=== PATIENT | male | born 1985 | race Caucasian/White ===

== ENCOUNTER 2021-11-22 14:11 | Emergency (ER) | payer MEDICAID, SELFPAY ==
[2021-11-22 14:11] VITALS: BP 109/78; PULSE 83; RESP 16; TEMP 36.8; O2SAT 100; BMI 22.3
--- NOTE | 2021-11-22 15:16 | CT_ITS ---
STUDY: CT ABDOMEN AND PELVIS WITH CONTRAST REASON FOR EXAM: Male, 36 years old. pain -- IV PO Contrast RADIATION DOSAGE (If Supplied By Facility): CTDIvol = ( 13.16 ) mGy, DLP = ( 567.91 ) mGycm TECHNIQUE: Transaxial images were obtained from the dome of the diaphragm to the symphysis pubis with oral contrast. Oral and amp; IV Gastrografin and amp; 100mL Isovue-370 was administered. Sagittal and coronal images were reconstructed. Individualized dose optimization techniques were used for this CT. COMPARISON: None. FINDINGS: The visualized lung bases are unremarkable. The visualized portions of the heart are within normal limits. Normal liver. The gallbladder is contracted. There is moderate splenomegaly. Normal pancreas. Normal bilateral adrenal glands. Normal right kidney. Normal left kidney. Normal visualized stomach. Normal small intestine. Normal colon. There is non-visualization of the appendix. Normal abdominal aorta. Normal inferior vena cava. Normal retroperitoneum. Normal urinary bladder. Normal abdominal wall. Normal osseous structures. CT/Abdomen/Pelvis WITH Contrast IMPRESSION: Moderate splenomegaly. Electronically Signed: Will Florentino MD at 17:10 EDT ,
--- NOTE | 2021-11-22 15:18 | EX.ED.DYSGE1 ---
HPI History of Present Illness Chief Complaint: Abd Pain Detail of Chief Complaint: Crohn's disease Informant: patient Narrative Narrative: Patient presents secondary to concerns of Crohn's disease. He was diagnosed in 2007 on colonoscopy. He has had intermittent flares throughout the years but has never been on maintenance medication. [place] the last [place] years and is recently [place] the [place] He is trying to establish medical coverage here. He has an appointment to see a new primary care physician the end of the month. He presents today secondary to continued abdominal pain and bloating after eating along with increased gas and diarrhea. No fever or chills. He is only had 1 instance where he has noted blood in his stool. [facility] Medical History Crohn's disease GERD (gastroesophageal reflux disease) Home Medications dicyclomine 10 mg capsule 10 mg PO BID #60 caps 11/22/21 [Rx Last Taken Unknown] pantoprazole 40 mg tablet,delayed release (Protonix) 40 mg PO DAILY #30 tabs 11/22/21 [Rx Last Taken Unknown] prednisone 20 mg tablet 40 mg PO DAILY #60 tabs 11/22/21 [Rx Last Taken Unknown] Allergy/AdvReac Type Severity Reaction Status Date / Time No Known Allergies Allergy Verified 11/22/21 14:14 Family History Father Heart disease Grandfather Heart disease Surgical History No history of previous surgery Social History Smoking Status: Never smoker alcohol intake: current alcohol intake frequency: a few times a month substance use type: marijuana ROS ROS ED Constitutional Constitutional ED: Denies chills or fever(s) Eyes Eyes: Denies change in vision or discharge from eye(s) ENT ENT ED: Denies discharge from eye(s), rhinorrhea or sore throat Cardiovascular Cardiovascular: Denies chest pain or palpitations Respiratory/Chest Respiratory/Chest: Denies cough or dyspnea Gastrointestinal Gastrointestinal: Reports abdominal pain, diarrhea and nausea; Denies vomiting Genitourinary Genitourinary ED: Denies difficulty urinating or dysuria Musculoskeletal Musculoskeletal: Denies back pain or extremity pain Integumentary Denies Abrasions or rash Neurologic Neurologic: Denies headache(s) or weakness Psychiatric Psychiatric: Denies anxiety or depression Allergic/Immunologic Allergic/Immunologic ED: Denies lip swelling or urticaria EXAM Physical Exam Const Vital Signs: 11/22/21 14:11 Temperature 98.2 F Temperature Source Temporal Pulse Rate 83 Respiratory Rate 16 Blood Pressure 109/78 Blood Pressure Mean 88 Pulse Ox 100 Oxygen Delivery Method Room Air Positive well nourished and well developed General Appearance ED: well developed HEENT Reports normocephalic and head/scalp atraumatic Eyes PERRL and EOMs intact bilaterally Neck supple Chest Wall inspection of chest normal and palpation of chest normal Resp normal respiratory effort and clear to auscultation bilaterally Cardio regular rate and regular rhythm GI normal to inspection, nondistended, normoactive bowel sounds Palpation: soft and tender RUQ Back/Spine no CVA tenderness Extremity normal to inspection Neuro oriented x3 and no sensory deficits noted Sensorium / Orientation: alert Motor Exam: strength 5/5 throughout Psych mental status grossly normal Skin no rashes or lesions noted MDM MDM MDM Narrative Medical decision making narrative: Lab work obtained along with CT scan of the abdomen pelvis with contrast. Lab Data Labs: Laboratory Results - last 24 hr 11/22/21 11/22/21 15:15 15:20 WBC 4.8 RBC 4.66 Hgb 11.5 L Hct 37.1 L MCV 79.6 L MCH 24.7 L MCHC 31.0 L RDW Std Deviation 41.9 RDW Coeff of Jenifer 14.6 Plt Count 90 L MPV 10.4 Immature Gran % (Auto) 0.200 Neut % (Auto) 62.2 Lymph % (Auto) 20.2 Nuckolls % (Auto) 6.9 Eos % (Auto) 9.9 H Baso % (Auto) 0.6 Absolute Neuts (auto) 3.0 Absolute Lymphs (auto) 0.96 Nucleated RBC % 0 Platelet Estimate MOD DEC RBC Morphology N CHROM Anisocytosis 1+ Microcytosis 1+ Sodium 139 Potassium 3.9 Chloride 106 Carbon Dioxide 29.0 Anion Gap 4 L BUN 9 Creatinine 0.69 L Estim Creat Clear Calc 150.47 Est GFR (MDRD) Af Amer 165 Est GFR (MDRD) Non-Af 137 BUN/Creatinine Ratio 13.1 Glucose 87 Calcium 8.4 L Total Bilirubin 0.30 Direct Bilirubin 0.08 AST 19 ALT 39 Alkaline Phosphatase 118 H Total Protein 6.8 Albumin 3.0 L Globulin 3.8 Radiography Diagnostic Testing: Clinical Impression(s) from Imaging Studies Abdomen/Pelvis CT 11/22/21 15:16 IMPRESSION: Moderate splenomegaly. Electronically Signed: Will Florentino MD at 17:10 EDT , Treatment and Re-Evaluation Narrative: CBC and chemistry studies unremarkable. LFTs significant only for an alk phos of 118. CT scan reveals moderate splenomegaly but no other acute findings noted. I spoke with GI, Dr. Uribe. Because the patient is symptomatic he will be started on prednisone, Protonix, dicyclomine. Dr. Uribe said he should be able to see him in the office in the next couple weeks I will write him [address] Uribe will continue as needed. Test results and plan discussed with patient and he is in agreement. Discharge Plan Triage Chief Complaint: Abd Pain ED Provider: Adelia Nicholas Dx/Rx/DC Orders Clinical Impression: Abdominal pain, History of Crohn's disease Instructions: Crohns Disease Dc Prescriptions: New prednisone 20 mg tablet 40 mg PO DAILY Qty: 60 0RF pantoprazole [Protonix] 40 mg tablet,delayed release (DR/EC) 40 mg PO DAILY Qty: 30 0RF dicyclomine 10 mg capsule 10 mg PO BID Qty: 60 0RF Primary Care Provider: Rhonda Callahan Referrals: Rhonda Callahan MD [Primary Care Provider] - Keep [facility] appointment Micah Uribe DO [Med Staff - Active Staff] - As soon as possible [facility],Juanita Pantoja [Non-Staff] - Disposition Disposition: Home, Self Care
[2021-11-22] MEDS: 0.9% Normal Saline 1,000 ML 150 ML IV (15:29)
[2021-11-22 15:42] LABS: Absolute Lymphocyte Count 0.96 X10^3/uL (0.83-4.51); Basophil# 0.03 X10^3/uL; Basophil% 0.6 % (0-1); Eosinophil# 0.47 X10^3/uL; Eosinophils% 9.9 % (0-5); Hematocrit 37.1 % (40-54); Hemoglobin 11.5 g/dL (13.0-16.5); Lymphocyte # 0.96 X10^3/ul (0.83-4.51); Lymphocyte % 20.2 % (19-41); Mean Corpuscular Hgb 24.7 pg (27.0-32.0); Mean Corpuscular Volume 79.6 fL (80-94); Mean Platelet Vol. 10.4 fl (6.2-12.0); Monocyte# 0.33 X10^3/uL; Monocyte% 6.9 % (0-10); NRBC Flagged by Analyzer 0 % (0-5); Neutrophil # 2.95 X10^3/uL (2.7-7.7); Neutrophil % 62.2 % (47-70); POSITIVE COUNT YES; Platelet Count 90 K/mm3 (150-450); RBC Distribution Width CV 14.6 % (11.6-14.6); RBC Distribution Width SD 41.9 fl (35.1-43.9); Red Blood Count 4.66 M/mm3 (4.6-6.2); White Blood Count 4.8 K/mm3 (4.4-11.0)
[2021-11-22 15:52] LABS: Differential Indicated SCAN CRITERIA MET
[2021-11-22 16:16] LABS: Platelet Estimate MOD DEC (ADEQ)
[2021-11-22 16:17] LABS: Anisocytosis 1+; Microcytosis 1+; Red Cell Morphology N CHROM NORMAL (NORM C&C)
[2021-11-22 16:20] LABS: BUN 9 mg/dL (7-18); Creatinine, Serum 0.69 mg/dL (0.70-1.30); EST Glomerular Filtration Rate 137 mL/min (>60); Estimated Creatinine Clearance 150.47 ml/min; Glucose 87 mg/dL (74-106)
[2021-11-22 16:21] LABS: AST(SGOT) 19 U/L (15-37); Alanine Aminotransfer ALT/SGPT 39 U/L (16-61); Alkaline Phosphatase 118 U/L (45-117); Anion Gap 4 (5-15); BUN/Creat Ratio 13.1 RATIO (10-20); Bilirubin, Direct 0.08 mg/dL (0.00-0.30); Calcium,Total 8.4 mg/dL (8.5-10.1); Chloride 106 mmol/L (98-107); Est Glom Filt Rate - Afr Amer 165 mL/min (>60); Globulin 3.8 g/dL (2.2-4.2); Potassium 3.9 mmol/L (3.5-5.1); Protein, Total 6.8 g/dL (6.4-8.2); Sodium Level 139 mmol/L (136-145)
[2021-11-22 17:45] VITALS: RESP 16
== END 2021-11-22 17:55 | disposition home or self-care (01) ==
PROVIDERS: Emergency Provider Emergency Medicine; PCP Internal Medicine; Visit Provider Emergency Medicine
DX: R10.9 Unspecified abdominal pain (principal); K50.90 Crohn's disease, unspecified, without complications; K21.9 Gastro-esophageal reflux disease without esophagitis
CPT/HCPCS: 74177; 80048; 80076; 85025; 96360; 96361; 99283; J7030; Q9967; A4216

== ENCOUNTER → 2021-12-31 | Outpatient (CLI) | payer MEDICAID, SELFPAY ==
[2021-12-31 10:40] LABS: Erythrocyte Sedimentation Rate 16 mm/hr (0-20)
[2021-12-31 10:47] LABS: Absolute Lymphocyte Count 1.46 X10^3/uL (0.83-4.51); Absolute Neutrophil Count 5.4 X10^3/uL (2.0-7.7); Basophil# 0.03 X10^3/uL; Basophil% 0.4 % (0-1); Eosinophil# 0.29 X10^3/uL; Eosinophils% 3.7 % (0-5); Hematocrit 38.7 % (40-54); Hemoglobin 12.5 g/dL (13.0-16.5); Lymphocyte # 1.46 X10^3/ul (0.83-4.51); Lymphocyte % 18.8 % (19-41); Mean Corp Hgb Conc 32.3 g/dL (32-36); Mean Corpuscular Hgb 25.8 pg (27.0-32.0); Mean Corpuscular Volume 79.8 fL (80-94); Mean Platelet Vol. 10.6 fl (6.2-12.0); Monocyte# 0.54 X10^3/uL; Monocyte% 6.9 % (0-10); NRBC Flagged by Analyzer 0 % (0-5); Neutrophil # 5.43 X10^3/uL (2.7-7.7); Neutrophil % 69.9 % (47-70); POSITIVE COUNT YES; Platelet Count 91 K/mm3 (150-450); RBC Distribution Width CV 16.2 % (11.6-14.6); Red Blood Count 4.85 M/mm3 (4.6-6.2); White Blood Count 7.8 K/mm3 (4.4-11.0)
[2021-12-31 11:10] LABS: ALB/GLOB Ratio 0.9 RATIO (0.9-2.4); AST(SGOT) 17 U/L (15-37); Alanine Aminotransfer ALT/SGPT 50 U/L (16-61); Albumin, Serum 3.3 g/dL (3.2-5.0); Alkaline Phosphatase 98 U/L (45-117); Anion Gap 8 (5-15); BUN 13 mg/dL (7-18); BUN/Creat Ratio 16.8 RATIO (10-20); Calcium,Total 8.4 mg/dL (8.5-10.1); Chloride 107 mmol/L (98-107); Creatinine, Serum 0.78 mg/dL (0.70-1.30); EST Glomerular Filtration Rate 119 mL/min (>60); Est Glom Filt Rate - Afr Amer 144 mL/min (>60); Ferritin 24 ng/mL (26-388); Globulin 3.7 g/dL (2.2-4.2); Glucose 97 mg/dL (74-106); Iron 87 ug/dL (65-175); Iron Binding Capacity,Total 288 ug/dL (250-450); LDH 91 U/L (87-241); PERCENT IRON SATURATION 30.2 % (15.0-55.0); Potassium 3.3 mmol/L (3.5-5.1); Sodium Level 141 mmol/L (136-145); Thyroid Stim Hormone (TSH) 1.55 uIU/mL (0.358-3.74)
[2022-01-03 16:08] LABS: Endomysial Antibody IgA Negative (Negative)
[2022-01-03 18:08] LABS: Anti-Centromere B Ab 0.4 AI (0.0-0.9); Anti-Chromatin <0.2 AI (0.0-0.9); Anti-Jo <0.2 AI (0.0-0.9); Anti-Scleroderma-70 AB <0.2 AI (0.0-0.9); RNP Ab 0.2 AI (0.0-0.9); SJOGREN'S Anti-SS-A test < 0.2 AI (0.0-0.9); SJOGREN'S Anti-SS-B test < 0.2 AI (0.0-0.9); Smith Ab <0.2 AI (0.0-0.9)
[2022-01-04 13:56] LABS: Immunoglobulin A 190 mg/dL (90-386); t-Transglutaminase IgA <2 U/mL (0-3)
[2022-01-04 13:58] LABS: Anti-dsDNA Ab <1 IU/mL (0-9)
[2022-01-06 16:18] LABS: H. PYLORI STOOL AG Negative (Negative)
[2022-01-07 08:59] LABS: Calprotectin, Stool 261 ug/g (0-120)
[2022-01-11 17:07] LABS: Albumin 3.5 g/dL (2.9-4.4); Alpha-1-Globulins 0.3 g/dL (0.0-0.4); Alpha-2-Globulins 0.7 g/dL (0.4-1.0); Cytoplasmic Ab (C-ANCA) <1:20 titer (Neg:<1:20); Gamma Globulin 1.2 g/dL (0.4-1.8); HEPATITIS B SURFACE AG Negative (Negative); Hep C Antibodies <0.1 s/co ratio (0.0-0.9); Hepatitis A IgM Antibody Negative (Negative); Hepatitis B Core AB IgM Negative (Negative); Immunoglobulin A 203 mg/dL (90-386); Immunoglobulin G 1063 mg/dL (603-1613); Immunoglobulin M 140 mg/dL (20-172); PROEL- TOTAL PROTEIN 6.6 g/dL (6.0-8.5); QNTFERON TB Mitogen Value > 10.00 IU/mL (.); QNTFERON TB Nil Value 0.06 IU/mL (.); QNTFERON TB1+ Ag Value 0.04 IU/mL (.); QNTFERON TB2+ Ag Value 0.04 IU/mL (.)
[2022-01-12 16:44] LABS: EBV Acute VCA IgM < 36.0 U/mL (0.0-35.9); EBV Nuclear Antigen IgG > 600.0 U/mL (0.0-17.9); EBV-VCA IgG > 600.0 U/mL (0.0-17.9)
[2022-01-12 16:46] LABS: CMV Acute Antibody IgM < 30.0 AU/mL (0.0-29.9); Immunoglobulin E 45 IU/mL (6-495); Perinuclear Ab (P-ANCA) <1:20 titer (Neg:<1:20); QNTIFERON TB Positive Criteria Negative (Negative)
== END | disposition home or self-care (01) ==
LOC: LAB 09:17
PROVIDERS: PCP Internal Medicine; Referring Provider Internal Medicine Gastroenterology; Visit Provider Internal Medicine Gastroenterology
DX: K50.90 Crohn's disease, unspecified, without complications (principal); K58.9 Irritable bowel syndrome, unspecified
CPT/HCPCS: 36415; 80053; 80074; 82728; 82784; 82785; 83516; 83540; 83550; 83615; 83630; 83993; 84165; 84443; 85025; 85652; 86140; 86225; 86235; 86255; 86256; 86334; 86480; 86644; 86645; 86664; 86665; 87040; 87338; 87493; 87506

== ENCOUNTER → 2022-01-17 | Outpatient (CLI) | payer MEDICAID, SELFPAY ==
--- NOTE | 2022-01-17 10:58 | US_ITS ---
STUDY: ABDOMINAL ULTRASOUND REASON FOR EXAM: Male, 37 years old. Splenomegaly TECHNIQUE: Transabdominal ultrasound was performed with real-time and static guardado scale imaging. TECHNICAL QUALITY: Adequate. COMPARISON: None. FINDINGS: Liver: The liver measures 17.1 cm. There is normal echogenicity of the liver. The bile ducts are within normal limits. There is hepatic color flow. The direction of portal flow is hepatopetal. There is no demonstrated mass lesion. Portal vein measurement: 1.8 cm Gallbladder: Normal distended gallbladder. The gallbladder wall measures 1 mm. There is a negative sonographic Weiss''s sign. There is no pericholecystic fluid. There are no gallstones. Common Bile Duct (C.B.D.): The common bile duct measures 5 mm. Pancreas: Normal size of the head, body of the pancreas. The tail portion is obscured due to overlying bowel gas. There is normal echogenicity of the pancreas. There is no demonstrated pancreatic mass or cyst. Spleen: There is splenomegaly. The spleen measures 19.1 cm x 5.6 cm x 5.7 cm. Right Kidney: Normal size of the right kidney. The right kidney measures 10.2 cm x 4.9 cm x 6 cm. Normal renal cortex. The right cortex measures 1.3 cm. There is no demonstrated renal mass or cyst. There is no right hydronephrosis. Left Kidney: Normal size of the left kidney. The left kidney measures 11.9 cm x 5 cm x 4.6 cm. Normal renal cortex. The left cortex measures 1.3 cm. There is no demonstrated renal mass or cyst. There is no left hydronephrosis. Aorta: Unremarkable. I.V.C.: The IVC is patent. There is no ascites. US/Abdomen Complete IMPRESSION: Splenomegaly. Electronically Signed: Viraj Tavares MD at 13:09 EDT ,
== END | disposition home or self-care (01) ==
LOC: US 10:57
PROVIDERS: PCP Internal Medicine; Referring Provider Internal Medicine Gastroenterology; Visit Provider Internal Medicine Gastroenterology
DX: R16.1 Splenomegaly, not elsewhere classified (principal)
CPT/HCPCS: 76700

== ENCOUNTER 2022-12-02 17:11 | Emergency (ER) | payer MEDICAID, SELFPAY ==
[2022-12-02 17:12] VITALS: BP 122/82; PULSE 85; RESP 16; TEMP 36.7; O2SAT 100; BMI 23.1
[2022-12-02 17:34] LABS: Absolute Lymphocyte Count 1.25 X10^3/uL (0.83-4.51); Absolute Neutrophil Count 8.4 X10^3/uL (2.0-7.7); Basophil# 0.04 X10^3/uL; Basophil% 0.4 % (0-1); Eosinophil# 0.19 X10^3/uL; Eosinophils% 1.8 % (0-5); Hematocrit 42.2 % (40-54); Hemoglobin 13.3 g/dL (13.0-16.5); Lymphocyte # 1.25 X10^3/ul (0.83-4.51); Lymphocyte % 11.6 % (19-41); Mean Corp Hgb Conc 31.5 g/dL (32-36); Mean Corpuscular Volume 82.6 fL (80-94); Mean Platelet Vol. 9.3 fl (6.2-12.0); Monocyte# 0.86 X10^3/uL; NRBC Flagged by Analyzer 0 % (0-5); Neutrophil # 8.42 X10^3/uL (2.7-7.7); Neutrophil % 77.8 % (47-70); Platelet Count 141 K/mm3 (150-450); RBC Distribution Width CV 13.2 % (11.6-14.6); RBC Distribution Width SD 39.8 fl (35.1-43.9); Red Blood Count 5.11 M/mm3 (4.6-6.2); White Blood Count 10.8 K/mm3 (4.4-11.0)
[2022-12-02 17:50] LABS: ALB/GLOB Ratio 0.7 RATIO (0.9-2.4); AST(SGOT) 9 U/L (15-37); Alanine Aminotransfer ALT/SGPT 38 U/L (16-61); Albumin, Serum 2.9 g/dL (3.2-5.0); Alkaline Phosphatase 121 U/L (45-117); Anion Gap 5 (5-15); BUN 9 mg/dL (7-18); BUN/Creat Ratio 9.7 RATIO (10-20); Calcium,Total 8.6 mg/dL (8.5-10.1); Chloride 101 mmol/L (98-107); Creatinine, Serum 0.93 mg/dL (0.70-1.30); EST Glomerular Filtration Rate 96 mL/min (>60); Est Glom Filt Rate - Afr Amer 117 mL/min (>60); Globulin 4.2 g/dL (2.2-4.2); Glucose 102 mg/dL (74-106); Protein, Total 7.1 g/dL (6.4-8.2); Sodium Level 135 mmol/L (136-145)
--- NOTE | 2022-12-02 17:50 | ED.VIS.GI ---
HPI HPI - GI History of Present Illness Chief Complaint: Abd Pain Detail of Chief Complaint: Abdominal pain due to Crohn's flare Informant: patient and spouse/S.O. Abdominal Pain/Flank Pain Onset: Weeks (2 weeks) Context: Sudden Onset Timing: Continuous Quality: Aching and Cramping Location: Diffuse Current Severity: Mild Maximum Severity: Moderate Worsened by: Nothing Relieved by: Nothing Nausea/Vomiting/Emesis GI Symptom: Positive for Nausea; Negative for Vomiting Diarrhea/Melena/Hematochezia GI Symptom: Positive for Diarrhea, Hematochezia and - (And mucus); Negative for Melena Stool Quality: Positive for Loose, Mucous and BRB per rectum Severity: Moderate Associated Symptoms Associated Symptoms: Positive for - (Decrease urine put); Negative for Dysuria, Frequency, Hematuria or Urgency LMP: Not applicable Narrative Narrative: Patient is a 37-year-old male with history of Crohn's disease. He also has history of thrombocytopenia and splenomegaly. Patient is presently on 20 mg of prednisone. He saw Dr. Uribe approximate year ago. He was recently in [place]. He apparently travels a lot. He states he will be in town for 3 to 4 months. He denies fever, chills night sweats. He does endorse thirst, dry mouth and plus minus orthostatic symptoms. He does endorse multiple loose watery stools with mucus and blood. He thinks he has a hemorrhoid. He has no other complaints. Prior similar symptoms: Yes Recent Illness/Hospitalization: Yes (When he was in [place] was seen at urgent care and placed on prednisone) [facility] Medical History Crohn's disease GERD (gastroesophageal reflux disease) Home Medications dicyclomine 10 mg capsule 10 mg PO BID #60 caps 11/22/21 [Rx Last Taken Unknown] pantoprazole 40 mg tablet,delayed release (Protonix) 40 mg PO DAILY #30 tabs 11/22/21 [Rx Last Taken Unknown] prednisone 10 mg tablet 10 mg PO DAILY #63 tabs 12/02/22 [Rx Last Taken Unknown] Allergy/AdvReac Type Severity Reaction Status Date / Time No Known Allergies Allergy Verified 12/02/22 17:12 Family History Father Heart disease Grandfather Heart disease Surgical History History of colonoscopy (~2007) No history of previous surgery Social History (Updated 12/02/22 @ 17:[address] Adalberto Osorio MD) household members: significant other Smoking Status: Never smoker alcohol intake: current alcohol intake frequency: a few times a month substance use type: marijuana ROS ROS ED Constitutional Constitutional ED: Denies chills, fever(s), subjective, sweats or weight loss ENT ENT ED: Denies rhinorrhea or sore throat Cardiovascular Cardiovascular: Denies chest pain or palpitations Respiratory/Chest Respiratory/Chest: Denies cough, dyspnea or dyspnea on exertion Gastrointestinal Gastrointestinal: Reports abdominal pain, diarrhea and other Details: Per HPI narrative ; Denies melena, nausea or vomiting Genitourinary Genitourinary ED: Reports other Details: Decreased urine output ; Denies dysuria, hematuria or urinary frequency Musculoskeletal Musculoskeletal: Denies arthralgias or myalgias Integumentary Denies rash Neurologic Neurologic: Reports weakness; Denies paresthesias Hematologic/Lymphatic Hematologic/Lymphatic: Denies easy bleeding or easy bruising EXAM Physical Exam Const Vital Signs: 12/02/22 17:12 Temperature 98.0 F Temperature Source Temporal Pulse Rate 85 Respiratory Rate 16 Blood Pressure 122/82 H Blood Pressure Mean 95 Pulse Ox 100 Oxygen Delivery Method Room Air Positive well nourished and well developed Constitutional Narrative: Patient looks slightly uncomfortable. General Appearance ED: well developed; Negative for NAD or pallor HEENT Reports TM's clear and dry mucous membranes normocephalic and atraumatic Tympanic Membrane ED: Yes TM's clear Mouth ED: Yes dry mucous membranes Mouth: dry mucous membranes Eyes PERRL and EOMs intact bilaterally General Eye ED: Negative for pale conjunctiva or scleral icterus Neck no lymphadenopathy, supple and no JVD Resp normal respiratory effort and clear to auscultation bilaterally Cardio regular rate, regular rhythm, S1 normal heart sound, S2 normal heart sound and no murmurs GI non-tender, non-distended and no masses Auscultation: normoactive bowel sounds Palpation: soft Back/Spine no CVA tenderness Extremity full ROM Neuro CN's II-XII intact bilaterally, moves all extremities and no sensory deficits noted Sensorium / Orientation: alert Psych mental status grossly normal and thought process normal Skin no wounds General Skin Exam: Negative for jaundice or pallor Lesions: no lesions Rashes: no rashes MDM MDM MDM Narrative Medical decision making narrative: With history of Crohn's and bloody diarrhea with mucus suspect patient has acute Crohn's flare. His abdomen is tender. There is no guarding or peritoneal findings. Will obtain CBC to assess H&H and white count. Basic metabolic panel to assess renal function and evaluate for hypokalemia. Patient received a dose of Solu-Cortef in the emergency department. Since he is clinically dehydrated he also received 1 L of normal saline. Lab Data Attestation: I reviewed the patient's lab results. Lab results narrative: CBC is normal. Comprehensive metabolic panel for slight elevation alkaline phosphatase. Urinalysis is unremarkable. Macro is positive for leukoesterase. There is occult blood. Microscopic reveals 0-5 RBCs with 0 WBCs and 0 epithelial cells. No bacteria was noted. Specific gravity was 1.01. Labs: Laboratory Results - last 24 hr 12/02/22 12/02/22 17:25 17:57 WBC 10.8 RBC 5.11 Hgb 13.3 Hct 42.2 MCV 82.6 MCH 26.0 L MCHC 31.5 L RDW Std Deviation 39.8 RDW Coeff of Jenifer 13.2 Plt Count 141 L MPV 9.3 Immature Gran % (Auto) 0.400 Neut % (Auto) 77.8 H Lymph % (Auto) 11.6 L [place] % (Auto) 8.0 Eos % (Auto) 1.8 Baso % (Auto) 0.4 Absolute Neuts (auto) 8.4 H Absolute Lymphs (auto) 1.25 Nucleated RBC % 0 Sodium 135 L Potassium 4.0 Chloride 101 Carbon Dioxide 29.0 Anion Gap 5 BUN 9 Creatinine 0.93 Estim Creat Clear Calc 114.70 Est GFR (MDRD) Af Amer 117 Est GFR (MDRD) Non-Af 96 BUN/Creatinine Ratio 9.7 L Glucose 102 Calcium 8.6 Total Bilirubin 0.60 AST 9 L ALT 38 Alkaline Phosphatase 121 H Total Protein 7.1 Albumin 2.9 L Globulin 4.2 Albumin/Globulin Ratio 0.7 L Urine Color Yellow Urine Clarity Clear Urine pH 7.0 Ur Specific [place] 1.010 Urine Protein 15 H Urine Glucose (UA) Normal Urine Ketones Negative Urine Occult Blood 10 H Urine Nitrite Negative Urine Bilirubin Negative Urine Urobilinogen Normal Ur Leukocyte Esterase 25 H Urine RBC 0-5 SEEN Urine WBC 0 SEEN Ur Squamous Epith Cells 0 SEEN Urine Bacteria 0 SEEN Urine Mucus 1+ Treatment and Re-Evaluation :: He was discharged with tapering dose of prednisone and he was given Dr. Uribe's office number for follow-up. Discharge Plan Triage Chief Complaint: Abd Pain ED Provider: Adalberto Osorio Dx/Rx/DC Orders Clinical Impression: Exacerbation of Crohn's disease Instructions: ED Crohn's Disease Prescriptions: New prednisone 10 mg tablet 10 mg PO DAILY Qty: 63 0RF Rx Instructions: 60 mg p.o. daily ?3 days, 50 mg p.o. daily ?3 days, 40 mg p.o. daily ?3 days, 30 mg p.o. daily ?3 days, 20 mg p.o. daily ?3 days, 10 mg p.o. daily ?3 days. No Action pantoprazole [Protonix] 40 mg tablet,delayed release (DR/EC) 40 mg PO DAILY Qty: 30 0RF dicyclomine 10 mg capsule 10 mg PO BID Qty: 60 0RF Primary Care Provider: Rhonda Callahan Referrals: Rhonda Callahan MD [Primary Care Provider] - 1 Week Micah Uribe DO [Med Staff - Active Staff] - 1-2 Weeks Disposition Disposition: Home, Self Care
[2022-12-02 18:01] LABS: Bacteria 0 SEEN /hpf (None Seen); Squamous Epithelial Cells - UA 0 SEEN /hpf (0-5); White Blood Cells 0 SEEN /hpf (0-5)
[2022-12-02] MEDS: MethylPREDNISolone 125 MG/2 ML Vial IV (18:02)
[2022-12-02] MEDS: 0.9% Normal Saline 1,000 ML 1000 ML IV (18:03)
[2022-12-02 18:04] LABS: Color, Urine Yellow (Yellow); Glucose, Dipstick Normal (Normal); Ketone-Dipstick Negative (Negative); Leukocyte Esterase-Dipstick 25 /ul (Negative); Nitrite-Dipstick Negative (Negative); Occult Blood-Urine 10 /ul (Negative); Protein-Dipstick 15 mg/dl (Negative); Urine Bilirubin Dipstick Negative (Negative); Urine Clarity Clear (Clear); Urine Urobilinogen Normal (Normal)
[2022-12-02 18:12] LABS: Mucous, Urine 1+ /hpf (<or=2+); Red Blood Cells-Urine 0-5 SEEN /hpf (0-5)
== END 2022-12-02 18:49 | disposition home or self-care (01) ==
LOC: ED 18:41
PROVIDERS: Emergency Provider Emergency Medicine; PCP Internal Medicine; Visit Provider Emergency Medicine
DX: K50.90 Crohn's disease, unspecified, without complications (principal); E86.0 Dehydration; K21.9 Gastro-esophageal reflux disease without esophagitis
CPT/HCPCS: J2405; 80053; 81001; 85025; 96361; 96374; 99283; J7030; A4216

== ENCOUNTER → 2022-12-16 | Outpatient (CLI) | payer MEDICAID, SELFPAY ==
--- NOTE | 2022-12-16 15:04 | CT_ITS ---
STUDY: CT ABDOMEN AND PELVIS WITH CONTRAST REASON FOR EXAM: Male, 37 years old. Rectal pain, discharge, active Chrons. RADIATION DOSAGE (If Supplied By Facility): CTDIvol = ( 12.21 ) mGy, DLP = ( 572.71 ) mGycm TECHNIQUE: Transaxial images were obtained from the dome of the diaphragm to the symphysis pubis with oral contrast. Oral and amp; IV Readi-CAT and amp; 100mL Isovue-370 was administered. Sagittal and coronal images were reconstructed. Individualized dose optimization techniques were used for this CT. COMPARISON: Comparison is made with prior study November 22, 2021. FINDINGS: The visualized lung bases are unremarkable. The visualized portions of the heart are within normal limits. Normal liver. Normal gallbladder and extrahepatic biliary system. There is moderate splenomegaly. Normal pancreas. Normal bilateral adrenal glands. Normal right kidney. Normal left kidney. There is a small hiatal hernia. Diffuse circumferential thickening of the terminal ileum. This is suggestive of terminal ileitis. Moderate amount of fecal material is seen in the colon. There is evidence of circumferential wall thickening involving the descending colon as well as the rectosigmoid colon suggestive of inflammatory changes. Increased markings in the surrounding peritoneal fat. The appendix is visualized and appears normal. Normal abdominal aorta. Normal inferior vena cava. Normal retroperitoneum. Normal urinary bladder. Normal abdominal wall. Findings suggestive of a sacroiliitis. CT/Abdomen/Pelvis WITH Contrast IMPRESSION: Circumferential wall thickening and inflammatory changes in the left hemicolon down to the rectum suggestive of recurrent inflammatory changes. Circumferential thickening of the terminal ileum. Sacroiliitis. Electronically Signed: Viraj Tavares MD at 15:28 EDT ,
== END | disposition home or self-care (01) ==
LOC: CT 15:03
PROVIDERS: PCP Internal Medicine; Referring Provider Internal Medicine; Visit Provider Internal Medicine
DX: K50.90 Crohn's disease, unspecified, without complications (principal); R16.1 Splenomegaly, not elsewhere classified
CPT/HCPCS: 74177; Q9967